=== PATIENT | male | born 1995 | race Caucasian/White ===

== ENCOUNTER 2017-10-14 12:17 | Inpatient (IN) | payer OTHER ==
[2017-10-14] MEDS ORDERED: hydrALAzine 20 MG INJ IV (13:30)
[2017-10-14] MEDS ORDERED: NACL 0.9% 3 ML SYG IV (13:30)
[2017-10-14] MEDS ORDERED: NA PHOSPHATE/BIPHOS 133 ML ENEMA PR (13:30)
[2017-10-14] MEDS ORDERED: morphine 2 MG INJ IV (13:30)
[2017-10-14] MEDS ORDERED: NITROGLYCERIN (SL) 0.4 MG TAB SL (13:30)
[2017-10-14] MEDS ORDERED: LORAZEPAM 2 MG INJ IV (13:30)
[2017-10-14] MEDS ORDERED: ONDANSETRON 4 MG INJ IV (13:30)
[2017-10-14] MEDS ORDERED: ALBUTEROL/IPRATROPIUM (NEB) 3 ML AMP HHN (13:30)
[2017-10-14] MEDS: CEFTRIAXONE 1 GM/50 ML (PMX) 50 ML IVPB (14:40)
[2017-10-14] MEDS: SOD CHLORIDE 0.9% 1,000 ML IV ×2 (14:41→23:16)
[2017-10-14 15:14] LABS: INR 1.14; PROTIME 14.8 Sec (11.9-14.9); PT RATIO 1.2
[2017-10-14 15:15] LABS: PARTIAL THROMBOPLASTIN TIME 34.1 Sec (25.0-35.0)
[2017-10-14 15:39] LABS: FREE T4 (FREE THYROXINE) 1.47 ng/dl (0.79-2.35)
[2017-10-14] MEDS: MAGNESIUM HYDROXIDE 30ML CUP PO (15:55)
[2017-10-14] MEDS: DOCUSATE SODIUM 100 MG CAP PO (15:55)
[2017-10-14] MEDS: morphine LIQ (10 MG/5 ML) CUP PO (20:49)
[2017-10-14] MEDS: HEPARIN 5,000 UNIT/0.5 ML VIAL SC (21:00)
[2017-10-14] MEDS: LORAZEPAM 0.5 MG TAB PO (21:44)
[2017-10-14] MEDS: ACETAMINOPHEN 325 MG TAB PO (21:44)
[2017-10-15] MEDS: HYDROCODONE/APAP (5/325) TAB PO ×4 (00:48→20:20)
[2017-10-15] MEDS: SOD CHLORIDE 0.9% 1,000 ML IV ×3 (03:06→18:09)
[2017-10-15 05:04] LABS: ADD MAN DIFF? NO
[2017-10-15] MEDS: PANTOPRAZOLE (EC) 40 MG TAB PO (05:05)
[2017-10-15 05:19] LABS: BASOPHILS % 0.4 % (0.0-2.0); EOSINOPHILS # 0.1 10^3/ul (0.0-0.5); EOSINOPHILS % 0.9 % (0.0-7.0); HEMATOCRIT 36.5 % (42.0-52.0); HEMOGLOBIN 11.6 g/dl (14.0-18.0); LYMPHOCYTES # 2.7 10^3/ul (0.8-2.9); LYMPHOCYTES % 28.3 % (15.0-51.0); MEAN CORPUSCULAR HEMOGLOBIN 28.9 pg (29.0-33.0); MEAN CORPUSCULAR HGB CONC 31.8 g/dl (32.0-37.0); MEAN CORPUSCULAR VOLUME 90.8 fl (82.0-101.0); MEAN PLATELET VOLUME 10.7 fl (7.4-10.4); MONOCYTES % 10.8 % (0.0-11.0); NEUTROPHIL # 5.6 10^3/ul (1.6-7.5); NEUTROPHILS % 59.2 % (39.0-77.0); PLATELET COUNT 342 10^3/UL (140-415); RED BLOOD COUNT 4.02 10^6/ul (4.70-6.10); RED CELL DISTRIBUTION WIDTH 12.9 % (11.5-14.5)
[2017-10-15 05:19] LABS: WHITE BLOOD COUNT 9.4 10^3/ul (4.8-10.8)
[2017-10-15 06:22] LABS: ANION GAP 19 (8-16); BLOOD UREA NITROGEN 4 mg/dl (7-20); CALCIUM 8.5 mg/dl (8.4-10.2); CARBON DIOXIDE 26 mmol/L (21-31); CHLORIDE 103 mmol/L (97-110); CHOL/HDL RATIO 3.2 RATIO; CHOLESTEROL 110 mg/dl (100-200); CREATININE 0.71 mg/dl (0.61-1.24); GLUCOSE 91 mg/dl (70-220); HDL CHOLESTEROL 34 mg/dl (30-63); LDL CHOLESTEROL,CALCULATED 62 mg/dl; PHOSPHORUS 4.2 mg/dl (2.5-4.9); POTASSIUM 3.6 mmol/L (3.5-5.1); SODIUM 144 mmol/L (135-144); TRIGLYCERIDES 71 mg/dl (0-149)
[2017-10-15 08:48] LABS: HEMOGLOBIN A1C 5.4 % (0-5.9)
[2017-10-15] MEDS: HEPARIN 5,000 UNIT/0.5 ML VIAL SC ×2 (09:15→20:19)
[2017-10-15] MEDS: CEFTRIAXONE 1 GM/50 ML (PMX) 50 ML IVPB (14:18)
[2017-10-15] MEDS: POLYETHYLENE GLYCOL 17 GM PACKET PO (16:19)
[2017-10-15] MEDS: MAGNESIUM HYDROXIDE 30ML CUP PO (20:22)
[2017-10-16] MEDS: HYDROCODONE/APAP (5/325) TAB PO ×3 (02:08→19:59)
[2017-10-16 05:04] LABS: ADD MAN DIFF? NO
[2017-10-16 05:13] LABS: WHITE BLOOD COUNT 8.5 10^3/ul (4.8-10.8)
[2017-10-16 05:13] LABS: BASOPHILS % 0.4 % (0.0-2.0); EOSINOPHILS # 0.2 10^3/ul (0.0-0.5); EOSINOPHILS % 1.9 % (0.0-7.0); HEMATOCRIT 36.2 % (42.0-52.0); HEMOGLOBIN 11.5 g/dl (14.0-18.0); LYMPHOCYTES # 1.9 10^3/ul (0.8-2.9); LYMPHOCYTES % 21.7 % (15.0-51.0); MEAN CORPUSCULAR HGB CONC 31.8 g/dl (32.0-37.0); MEAN CORPUSCULAR VOLUME 91.2 fl (82.0-101.0); MEAN PLATELET VOLUME 10.5 fl (7.4-10.4); MONOCYTE # 0.9 10^3/ul (0.3-0.9); MONOCYTES % 10.7 % (0.0-11.0); NEUTROPHIL # 5.6 10^3/ul (1.6-7.5); NEUTROPHILS % 65.1 % (39.0-77.0); PLATELET COUNT 358 10^3/UL (140-415); RED BLOOD COUNT 3.97 10^6/ul (4.70-6.10); RED CELL DISTRIBUTION WIDTH 12.6 % (11.5-14.5)
[2017-10-16] MEDS: PANTOPRAZOLE (EC) 40 MG TAB PO (05:13)
[2017-10-16] MEDS: SOD CHLORIDE 0.9% 1,000 ML IV ×3 (05:14→21:12)
[2017-10-16 05:37] LABS: ANION GAP 16 (8-16); BLOOD UREA NITROGEN 3 mg/dl (7-20); CALCIUM 8.9 mg/dl (8.4-10.2); CARBON DIOXIDE 30 mmol/L (21-31); CHLORIDE 102 mmol/L (97-110); CREATININE 0.74 mg/dl (0.61-1.24); GLUCOSE 94 mg/dl (70-220); SODIUM 144 mmol/L (135-144)
[2017-10-16] MEDS: POLYETHYLENE GLYCOL 17 GM PACKET PO (08:33)
[2017-10-16] MEDS: HEPARIN 5,000 UNIT/0.5 ML VIAL SC ×2 (08:34→20:51)
[2017-10-16] MEDS ORDERED: INFLUENZA VIRUS VACCINE 0.5 ML (DISPENSING) IM* (09:00)
[2017-10-16] MEDS: morphine 2 MG INJ IV ×2 (12:37→21:17)
[2017-10-16] MEDS: CEFTRIAXONE 1 GM/50 ML (PMX) 50 ML IVPB (12:37)
[2017-10-16] MEDS: metroNIDAZOLE 500 MG TAB PO (21:12)
[2017-10-17] MEDS: SOD CHLORIDE 0.9% 1,000 ML IV ×2 (01:16→11:16)
[2017-10-17] MEDS: morphine 2 MG INJ IV ×5 (02:37→17:47)
[2017-10-17 05:42] LABS: ADD MAN DIFF? NO
[2017-10-17 05:48] LABS: WHITE BLOOD COUNT 8.3 10^3/ul (4.8-10.8)
[2017-10-17 05:48] LABS: BASOPHILS % 0.5 % (0.0-2.0); EOSINOPHILS # 0.3 10^3/ul (0.0-0.5); EOSINOPHILS % 3.2 % (0.0-7.0); HEMOGLOBIN 11.6 g/dl (14.0-18.0); LYMPHOCYTES # 2.1 10^3/ul (0.8-2.9); LYMPHOCYTES % 25.4 % (15.0-51.0); MEAN CORPUSCULAR HEMOGLOBIN 29.2 pg (29.0-33.0); MEAN CORPUSCULAR HGB CONC 32.2 g/dl (32.0-37.0); MEAN CORPUSCULAR VOLUME 90.7 fl (82.0-101.0); MEAN PLATELET VOLUME 10.5 fl (7.4-10.4); MONOCYTE # 0.8 10^3/ul (0.3-0.9); NEUTROPHIL # 5.1 10^3/ul (1.6-7.5); NEUTROPHILS % 61.5 % (39.0-77.0); PLATELET COUNT 400 10^3/UL (140-415); RED BLOOD COUNT 3.97 10^6/ul (4.70-6.10); RED CELL DISTRIBUTION WIDTH 12.7 % (11.5-14.5)
[2017-10-17] MEDS: metroNIDAZOLE 500 MG TAB PO (06:00)
[2017-10-17] MEDS: PANTOPRAZOLE (EC) 40 MG TAB PO (06:00)
[2017-10-17 06:28] LABS: ANION GAP 15 (8-16); BLOOD UREA NITROGEN 2 mg/dl (7-20); CALCIUM 8.8 mg/dl (8.4-10.2); CARBON DIOXIDE 28 mmol/L (21-31); CHLORIDE 104 mmol/L (97-110); CREATININE 0.74 mg/dl (0.61-1.24); GLUCOSE 89 mg/dl (70-220); POTASSIUM 3.9 mmol/L (3.5-5.1); SODIUM 143 mmol/L (135-144)
[2017-10-17] MEDS ORDERED: OXYCODONE/ACETAMINOPHEN (5/325) TAB PO ×2 (07:00)
[2017-10-17] MEDS ORDERED: EPHEDrine SULFATE 50 MG/5 ML SYG IV (07:00)
[2017-10-17] MEDS ORDERED: DIPHENHYDRAMINE 50 MG INJ IV (07:00)
[2017-10-17] MEDS ORDERED: hydrALAzine 20 MG INJ IV (07:00)
[2017-10-17] MEDS ORDERED: ATROPINE 1 MG/10 ML SYRINGE IV (07:00)
[2017-10-17] MEDS ORDERED: morphine (1 MG/ML) 10ML SYRINGE IV ×3 (07:00)
[2017-10-17] MEDS ORDERED: LABETALOL HCL 20MG INJ IV (07:00)
[2017-10-17] MEDS ORDERED: MIDAZOLAM 1 MG/ML 2 ML INJ IV (07:00)
[2017-10-17] MEDS ORDERED: HYDROmorphONE (0.2 MG/ML) 10ML SYG IV ×3 (07:00)
[2017-10-17] MEDS: HEPARIN 5,000 UNIT/0.5 ML VIAL SC (08:23)
[2017-10-17] MEDS: POLYETHYLENE GLYCOL 17 GM PACKET PO (08:23)
[2017-10-17] MEDS ORDERED: GLYCOPYRROLATE 0.4 MG INJ (10:54)
[2017-10-17] MEDS ORDERED: FENTAnyl 50 MCG/ML VIAL (10:54)
[2017-10-17] MEDS ORDERED: ROCURONIUM 50 MG INJ (10:54)
[2017-10-17] MEDS ORDERED: LIDOCAINE 2% (SDV) 5 ML INJ (10:54)
[2017-10-17] MEDS ORDERED: MIDAZOLAM 1 MG/ML 2 ML INJ (10:54)
[2017-10-17] MEDS ORDERED: NEOSTIGMINE 3 MG/3 ML SYRINGE (10:54)
[2017-10-17] MEDS ORDERED: PROPOFOL 20 ML (10:54)
[2017-10-17] MEDS ORDERED: SUCCINYLCHOLINE CHLORIDE 100 MG/5 ML SYG IV (11:00)
[2017-10-17] MEDS ORDERED: CEFAZOLIN 1 GM INJ (11:00)
[2017-10-17] MEDS ORDERED: LIDOCAINE 1%/EPI 30 ML INJ (11:05)
[2017-10-17] MEDS ORDERED: BUPIVACAINE 0.25% (MPF) 30 ML INJ (11:05)
[2017-10-17] MEDS ORDERED: IOHEXOL 300MG/ML 30 ML BTL (11:49)
[2017-10-17] MEDS ORDERED: DEXAMETHASONE 4 MG/ML 1 ML INJ (12:30)
[2017-10-17] MEDS ORDERED: LABETALOL HCL 20MG INJ (13:02)
[2017-10-17] MEDS ORDERED: ONDANSETRON 4 MG INJ IV (14:00)
[2017-10-17] MEDS ORDERED: ACETAMINOPHEN 325 MG TAB PO (14:00)
[2017-10-17] MEDS ORDERED: HYDROCODONE/APAP (5/325) TAB PO (14:00)
[2017-10-17] MEDS: ONDANSETRON 4 MG INJ IV (14:05)
[2017-10-17] MEDS: FENTAnyl 50 MCG/ML VIAL IV ×2 (14:05→14:26)
[2017-10-17] MEDS: BUPIVACAINE 0.25% (MPF) 30 ML INJ INJ (14:06)
[2017-10-17] MEDS: LIDOCAINE 1%/EPI 30 ML INJ INJ (14:06)
[2017-10-17] MEDS: MEPERIDINE 25 MG INJ IV (14:24)
[2017-10-17] MEDS: KETOROLAC 15 MG INJ IV ×2 (15:52→19:55)
[2017-10-17] MEDS: D5-NS + KCL 20 MEQ 1,000 ML IV ×2 (15:56→23:53)
[2017-10-17] MEDS: PIPER-TAZO 3.375 GM IV (PMX) 100 ML IVPB (18:20)
[2017-10-18] MEDS: morphine 2 MG INJ IV (00:09)
[2017-10-18] MEDS: PIPER-TAZO 3.375 GM IV (PMX) 100 ML IVPB ×2 (00:25→05:32)
[2017-10-18] MEDS ORDERED: CEPASTAT LOZENGE MT (00:30)
[2017-10-18] MEDS: KETOROLAC 15 MG INJ IV ×2 (02:35→08:13)
[2017-10-18] MEDS: D5-NS + KCL 20 MEQ 1,000 ML IV ×2 (03:17→09:53)
[2017-10-18 05:30] LABS: ADD MAN DIFF? NO
[2017-10-18] MEDS: PANTOPRAZOLE (EC) 40 MG TAB PO (05:32)
[2017-10-18 05:35] LABS: HEMATOCRIT 32.3 % (42.0-52.0); HEMOGLOBIN 10.6 g/dl (14.0-18.0); LYMPHOCYTES # 0.9 10^3/ul (0.8-2.9); LYMPHOCYTES % 7.4 % (15.0-51.0); MEAN CORPUSCULAR HGB CONC 32.8 g/dl (32.0-37.0); MEAN CORPUSCULAR VOLUME 88.3 fl (82.0-101.0); MEAN PLATELET VOLUME 10.2 fl (7.4-10.4); MONOCYTES % 8.8 % (0.0-11.0); NEUTROPHIL # 9.7 10^3/ul (1.6-7.5); NEUTROPHILS % 83.5 % (39.0-77.0); PLATELET COUNT 441 10^3/UL (140-415); RED BLOOD COUNT 3.66 10^6/ul (4.70-6.10); RED CELL DISTRIBUTION WIDTH 12.7 % (11.5-14.5)
[2017-10-18 05:35] LABS: WHITE BLOOD COUNT 11.6 10^3/ul (4.8-10.8)
[2017-10-18 06:11] LABS: ANION GAP 13 (8-16); BLOOD UREA NITROGEN 2 mg/dl (7-20); CALCIUM 9.1 mg/dl (8.4-10.2); CARBON DIOXIDE 26 mmol/L (21-31); CHLORIDE 104 mmol/L (97-110); CREATININE 0.65 mg/dl (0.61-1.24); GLUCOSE 156 mg/dl (70-220); POTASSIUM 3.9 mmol/L (3.5-5.1); SODIUM 139 mmol/L (135-144)
[2017-10-18] MEDS: ENOXAPARIN 40 MG/0.4 ML SYG SC (06:45)
[2017-10-18] MEDS: POLYETHYLENE GLYCOL 17 GM PACKET PO (08:13)
[2017-10-19] MEDS ORDERED: IBUPROFEN 600 MG TAB PO (08:00)
== END 2017-10-18 11:48 | disposition home or self-care (01) | DRG 419 ==
LOC: MS1 10-18 06:50
PROVIDERS: Hospitalist
PROC: 0FT44ZZ Resection of Gallbladder, Percutaneous Endoscopic Approach (ICD-10-PCS; principal; 2017-10-17 12:00)
DX: K81.0 Acute cholecystitis (principal); E66.9 Obesity, unspecified; Z68.36 Body mass index [BMI] 36.0-36.9, adult; S82.302D Unspecified fracture of lower end of left tibia, subsequent encounter for closed fracture with routine healing; X58.XXXD Exposure to other specified factors, subsequent encounter
CPT/HCPCS: 80048; 80061; 83036; 83735; 84100; 84439; 84443; 85025; 85610; 85730; 88304